=== PATIENT | female | born 2000 | race Caucasian/White ===

== ENCOUNTER 2021-01-09 09:02 | Outpatient (CLI) | payer OTHER | END 2021-01-09 09:17 | disposition home or self-care (01) | LOC: RAD 09:02 | DX: M54.2 Cervicalgia (principal) ==

== ENCOUNTER 2021-01-31 13:16 | Outpatient (CLI) | payer OTHER | END 2021-01-31 13:27 | disposition home or self-care (01) | LOC: MRI 13:16 | DX: M48.07 Spinal stenosis, lumbosacral region (principal); M54.16 Radiculopathy, lumbar region; M54.5 Low back pain; G31.89 Other specified degenerative diseases of nervous system | CPT/HCPCS: 72148 ==